=== PATIENT | male | born 1965 | race Caucasian/White ===

== ENCOUNTER 2016-12-01 11:43 | Inpatient (IN) | payer OTHER ==
[~2016-12-01] VITALS: Ht 180.3 cm; Wt 122.9 kg
[~2016-12-01 11:43] MED LIST changes: -ARIP1TAB14 PO; -BACTOIN EACH NARE; -HYDR-3366 PO
[2017-02-07] MEDS ORDERED: PYRI100T PO (13:01)
[2017-02-07] MEDS ORDERED: ARIP1TAB15 PO (13:01)
[2017-02-07] MEDS ORDERED: HYDR-3533 PO (14:13)
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
[2017-02-09] MEDS ORDERED: METOPROLOL TARTRATE 25 MG TAB PO PRN (06:15)
[2017-02-09] MEDS ORDERED: POVIDONE IODINE 5% (ANTISEPSIS KIT) 4 APPLICATIONS EACH NARE PRN (06:15)
[2017-02-09] MEDS ORDERED: SODIUM CHLORID 0.9% 500 ML IV PRN (06:15)
[2017-02-09] MEDS ORDERED: CHLORHEXIDINE GLUCONATE 2 % 1 PACK (2 CLOTHS) TOPICAL PRN (06:15)
[2017-02-09] MEDS ORDERED: INSULIN HUMAN REGULAR 1,000 UNITS/10 ML VIAL SQ PRN (06:15)
[2017-02-09] MEDS ORDERED: ceFAZolin 2 GM PREMIX 50 ML IV SCH (06:15)
[2017-02-09] MEDS ORDERED: SODIUM CHLOR 0.9% 1000 ML INJ 1,000 ML IV SCH (06:15)
[2017-02-09] MEDS ORDERED: LACTATED RINGER'S 1000 ML IV PRN (06:15)
[2017-02-09 06:28] VITALS: BP 119/72; PULSE 84; RESP 18; TEMP 98; O2SAT 96
[2017-02-09] MEDS ORDERED: THROMBIN (TOPICAL) 5,000 UNIT VIAL ONE (07:07)
[2017-02-09] MEDS ORDERED: GELFOAM SIZE 100 ONE (07:08)
[2017-02-09] MEDS ORDERED: BUPIVACAINE/EPINEPHRINE 0.5% PF 30 ML VIAL ONE (07:08)
[2017-02-09] MEDS ORDERED: DEXAMETHASONE SOD PHOS 4 MG/ML VIAL ONE (07:48)
[2017-02-09] MEDS ORDERED: ACETAMINOPHEN 1000 MG/100 ML VIAL IV ONE (07:48)
[2017-02-09] MEDS ORDERED: FAMOTIDINE 20 MG/2 ML VIAL ONE (07:48)
[2017-02-09] MEDS ORDERED: MIDAZOLAM HCL 2 MG/2 ML VIAL ONE (07:48)
[2017-02-09] MEDS: VANCOMYCIN HCL 1000 MG VIAL ONE ×2 (09:44→11:27)
[2017-02-09] MEDS ORDERED: DO NOT ADM ANY ANTICOAGULANT DRUGS PRN (12:00)
[2017-02-09] MEDS ORDERED: PROPOFOL 200 MG/20 ML AMP IV ONE (12:00)
[2017-02-09] MEDS ORDERED: NEOSTIGMINE 3 MG/3 ML SYR IV ONE (12:00)
[2017-02-09] MEDS ORDERED: PHENYLEPH/NS 1000 MCG/10 ML SYR IV ONE (12:00)
[2017-02-09] MEDS ORDERED: LACTATED RINGER'S 1000 ML INJ 2,000 ML IV ONE (12:00)
[2017-02-09] MEDS ORDERED: ePHEDrine/NS 25 MG/5 ML SYR IV ONE (12:00)
[2017-02-09] MEDS ORDERED: ONDANSETRON HCL 4 MG/2 ML VIAL IV PUSH ONE (12:00)
[2017-02-09] MEDS: NS + KCL 20 MEQ INJ 1,000 ML IV SCH ×2 (12:08→21:08)
[2017-02-09] MEDS ORDERED: ALUMINUM/MAGNESIUM/SIMETH 30 ML CUP PO PRN (12:15)
[2017-02-09] MEDS ORDERED: POTASSIUM CHLOR 20 MEQ PREMIX 100 ML IV PRN (12:15)
[2017-02-09] MEDS ORDERED: ZOLPIDEM TARTRATE 5 MG TAB PO PRN (12:15)
[2017-02-09] MEDS ORDERED: RESP: ALBUTEROL 2.5 MG/3 ML NEB (PRN) NEB (12:15)
[2017-02-09] MEDS ORDERED: CALCIUM GLUCONATE INJ 1 GM in SODIUM CHLORIDE 0.9% INJ 100 ML IV PRN (12:15)
[2017-02-09] MEDS ORDERED: METOCLOPRAMIDE HCL 10 MG/2 ML VIAL IVS PRN (12:15)
[2017-02-09] MEDS ORDERED: SODIUM CHLORIDE 0.9% FLUSH 10 ML FLUSH IV FLUSH PRN (12:15)
[2017-02-09] MEDS ORDERED: MENTHOL LOZENGE BUCCAL PRN (12:15)
[2017-02-09] MEDS ORDERED: diphenhydrAMINE HCL 50 MG/ML VIAL IV PRN (12:15)
[2017-02-09] MEDS ORDERED: MAGNESIUM SULFATE INJ 2 GM in SODIUM CHLORIDE 0.9% INJ 100 ML IV PRN (12:15)
[2017-02-09] MEDS ORDERED: ACETAMINOPHEN/HYDROcodone 325 MG/10 MG TAB PO PRN ×2 (12:15)
[2017-02-09] MEDS ORDERED: ONDANSETRON HCL 4 MG/2 ML VIAL IV PRN (12:15)
[2017-02-09] MEDS ORDERED: cloNIDine HCL 0.1 MG TAB PO PRN (12:15)
[2017-02-09] MEDS ORDERED: NALOXONE HCL 0.4 MG/ML AMP IV PRN (12:15)
[2017-02-09] MEDS ORDERED: MORPHINE SULFATE 30 MG/30 ML PCA IV SCH (12:15)
[2017-02-09] MEDS ORDERED: ACETAMINOPHEN 325 MG TAB PO PRN (12:15)
--- NOTE | 2017-02-09 12:15 | PD.OP ---
Operative Report Date of Surgery: Feb 09, 2017 Preoperative Diagnosis: Intractable low back pain with right radiculopathy; L4-5 degenerative disc disease with facet arthropathy and associated foraminal stenosis; postlaminectomy syndrome Postoperative Diagnosis: Same Procedure: Right lumbar L4-5 transforaminal decompression with interbody fusion; L4-5 pedicle screw fixation; L4-5 interbody cage placement; microsurgical technique Anesthesia: Gen. endotracheal by Fahad Galloway Surgeon: Osmani Hancock M.D. Law Firm Partner(s): Lindsay Fernández Operation and Findings: Following initiation of general endotracheal anesthesia, the patient had a De Jesus catheter placed along with sequential compression devices. A gram of vancomycin was administered intravenously and he was turned in a prone position on a Lane frame, on a Allen table, and all pressure points adequately padded. The lumbosacral region was then prepped with Chloraprep and sterilely draped with Ioban along the usual sterile draping. A right paraspinal skin incision was then made extending from the L4-L5 level after infiltrating the skin with 0.5% Marcaine with epinephrine solution extending down through the fascia. He had a previous large midline incision site and the right paraspinal incision approach was undertaken to avoid scar tissue from the previous surgery. The muscle fibers were split using avascular fatty plane and detached from the underlying facets, transverse process and lateral portion of lamina on the right side and a self-retaining retractor used for exposure. Intraoperative fluoroscopy was also used for level of confirmation along with microscope magnification for further dissection. There was significant facet and ligamentum flavum hypertrophy noted at the L4-5 levels along with a disc protrusion. Right L4-5 facet was resected with a drill bit along with the lamina and there was severe foraminal and lateral recess stenosis from hypertrophied ligamentum flavum and facet which was decompressed. There was significant disc height collapse along with disc protrusion also leading to the foraminal stenosis. Epidural hemostasis was achieved with bipolar cautery and Gelfoam with thrombin. Subsequently entered into the disc space at the L4-5 level with a #15 blade and gino were used for discectomy. I then placed PEEK cage packed with local autograft bone along with the demineralized bone matrix and more local autograft bone was packed adjacent to the cage in interspace for added interbody fusion. With placement of the cage, I was able to distract the interspace and opened up the foramen further bilaterally. Subsequently in order to facilitate the fusion and provide stabilization, pedicle screw fixation was undertaken using [place] spine screws on entry point at the right L4-5 levels at the junction of the transverse process and facet. Subsequently using AP and lateral fluoroscopy tap and screw placement. The screws were then connected with a ame and locked in place with caps. The construct appeared very secure at this point. The area was then copiously irrigated with Vancomycin solution and powder. The retractors were removed and the bipolar cautery used for hemostasis. The muscle fascia was then approximated using 2-0 Vicryl interrupted stitches and then 3-0 Vicryl subcuticular stitches also placed in interrupted fashion. The final skin closure was completed with aldo. A sterile dressing was then applied. The patient then turned in supine position, extubated and taken to recovery room. There were no intraoperative complications. All sponge and needle counts were correct at the end of procedure. Estimated blood loss about 100 ml. Osmani Hancock MD Feb 09, 2017 12:15
[2017-02-09] MEDS: CYCLOBENZAPRINE HCL 10 MG TAB PO SCH ×2 (13:00→17:43)
[2017-02-09] MEDS: GABAPENTIN 300 MG CAP PO SCH ×2 (13:00→17:43)
[2017-02-09] MEDS: hydrOXYzine HCL 25 MG TAB PO SCH ×2 (13:00→17:43)
[2017-02-09 13:16] LABS: HEMATOCRIT 35.8 % (39.0-51.0); MEAN CELL VOLUME 87.2 FL (80.0-100.0); MEAN CORPUSCULAR HGB CONC 33.3 % (32.0-36.0); PLATELET COUNT 251 TH/MM3 (150-450); RED BLOOD COUNT 4.11 MIL/MM3 (4.50-5.90); RED CELL DISTRIBUTION WIDTH 13.5 % (11.6-17.2); REVIEW FLAG FINAL; WHITE BLOOD COUNT 9.1 TH/MM3 (4.0-11.0)
[2017-02-09 13:29] LABS: BICARBONATE 29.5 MEQ/L (21.0-32.0); POTASSIUM 4.4 MEQ/L (3.5-5.1)
[2017-02-09] MEDS: PCA - TOTAL MG MORPHINE DELIVERED PER SHIFT SCH ×2 (14:00→21:58)
[2017-02-09 15:41] VITALS: BP 140/87; PULSE 93; RESP 18; TEMP 97.4; O2SAT 94
--- NOTE | 2017-02-09 15:51 | RADRPT ---
EXAM DATE/TIME: 02/09/2017 08:50 [facility] COMPARISON: No previous studies available for comparison. INDICATIONS : Fusion L4,L5 with screw and ame placement. MEDICAL HISTORY : None. SURGICAL HISTORY : None. ENCOUNTER: Initial ACUITY: 1 day PAIN SCORE: Non-responsive. LOCATION: lumbar spine. FINDINGS: AP and lateral cone-down views of the lower lumbar spine were obtained using a matrix camera. This de monstrates that the patient is status post fusion at the L4-5 level with right-sided pedicle screws a nd posterior fixation ame. There 2 small metallic markers in the interspace. Alignment is anatomic. T he study is labeled assuming 5 nonrib-bearing lumbar type vertebra. CONCLUSION: Status post fusion at the L4-5 level. Zev Mccloud MD on February 09, 2017 at 15:48 Board Certified Radiologist. This report was verified electronically.
--- NOTE | 2017-02-09 17:33 | PD.CONS ---
HPI Service [facility] Consult Requested By Primary Care Physician Non-Staff Diagnoses: History of Present Illness Mr. Oconnell is a 51-year-old male. He was admitted secondary to chronic lower back pain and in need of lumbar fusion at L4-L5 due to lumbar degenerative disc disease. At baseline he has asthma, sleep apnea, hypertension, rheumatoid arthritis, depression, anxiety and tuberculosis and as a child. He's had a prior lumbar back surgery in year 1999 and his only other surgery reported as a cholecystectomy. When seen he is in pain and reports that narcotics to work well for him. He finds more relief from Naprosyn and gabapentin than he does from certain narcotics. He's never tried oxycodone to his knowledge. He has tried morphine and hydrocodone in the past without much benefit. He may have some genetic opioid resistance. No other complaints. No nausea or vomiting. No altered mental status post op. Review of Systems Constitutional: DENIES: Fever, Chills, Change in appetite Endocrine: DENIES: Heat/cold intolerance Eyes: DENIES: Blurred vision, Eye pain Ears, nose, mouth, throat: DENIES: Hearing loss, Vertigo Respiratory: DENIES: Cough, Wheezing, Shortness of breath Cardiovascular: DENIES: Chest pain, Palpitations, Syncope Gastrointestinal: DENIES: Abdominal pain, Black stools, Bloody stools Musculoskeletal: COMPLAINS OF: Joint pain, Back pain Integumentary: DENIES: Abnormal pigmentation, Nail changes Hematologic/lymphatic: DENIES: Bruising Immunologic/allergic: DENIES: Eczema Neurologic: DENIES: Abnormal gait Psychiatric: DENIES: Anxiety, Confusion, Mood changes Past Family Social History Allergies: Coded Allergies: aspirin (Unverified Allergy, Severe, Irritability/Anxiety, 02/09/17) Pt states it closes up his throat Past Medical History Asthma Sleep apnea Hypertension Rheumatoid arthritis Depression Anxiety Tuberculosis as a child Past Surgical History Cholecystectomy Lumbar back surgery in 1999 Reported Medications Reported Meds & Active Scripts Active Lortab (Hydrocodone-Acetaminophen) 5-325 Mg Tab 1 Tab PO Q8HR PRN Reported Aripiprazole 30 Mg Tab 30 Mg PO DAILY Vitamin B-6 (Pyridoxine HCl) 100 Mg Tab 100 Mg PO DAILY Furosemide 20 Mg Tab 20 Mg PO DAILY Flexeril (Cyclobenzaprine HCl) 10 Mg Tab 10 Mg PO TID Proscar (Finasteride) 5 Mg Tab 5 Mg PO DAILY Do not crush. Nifedipine ER 24 HR (Nifedipine) 30 Mg Tab 30 Mg PO DAILY Duloxetine DR (Duloxetine HCl) 60 Mg Capdr 60 Mg PO DAILY Hydroxyzine HCl 25 Mg Tab 50 Mg PO TID Ala-Cornelius Topical (Hydrocortisone (Topical)) 2.5% Cream 1 Applic TOPICAL DIRECTED Doxazosin (Doxazosin Mesylate) 8 Mg Tab 8 Mg PO DAILY Isoniazid 300 Mg Tab 300 Mg PO DAILY Potassium Chloride ER (Potassium Chloride) 10 Meq Tab 10 Meq PO BID Gabapentin 600 Mg Tab 600 Mg PO TID Active Ordered Medications Administered Medications Medications (Trade) Dose Ordered Sig/Cathy Route PRN Reason Start Time Stop Time Status Last Admin Dose Admin Potassium Chloride/Sodium Chloride 1,000 ml @ 100 mls/hr Q10H IV 02/09/17 12:08 02/09/17 12:08 Cefazolin Sodium/ Sodium Chloride (Ancef Inj/NS Inj) 100 ml @ 200 mls/hr Q8H IV 02/09/17 15:00 02/10/17 07:29 02/09/17 14:22 Morphine Sulfate (Morphine 1 Mg/ ml IT SERVICE CONTINUITY 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 No alcohol abuse No drug abuse Physical Exam Vital Signs Vital Signs Date Time Temp Pulse Resp B/P Pulse Ox O2 Delivery O2 Flow Rate FiO2 02/09/17 17:03 3 02/09/17 15:41 97.4 93 18 140/87 94 02/09/17 14:05 Nasal Cannula 2.00 02/09/17 13:30 94 16 149/86 96 Nasal Cannula 2 02/09/17 13:00 98 16 136/68 96 Nasal Cannula 2 02/09/17 12:45 98 16 147/86 95 Nasal Cannula 2 02/09/17 12:30 96 16 149/87 96 Nasal Cannula 2 02/09/17 12:15 96 16 139/84 95 Nasal Cannula 2 02/09/17 12:00 98.6 94 16 135/83 93 Nasal Cannula 2 02/09/17 06:28 98.0 84 18 119/72 96 Physical Exam GENERAL: NAD, A&Ox3 HEAD: Normocephalic. NECK: Supple, trachea midline. No lymphadenopathy. EYES: No scleral icterus. No injection or drainage. CARDIOVASCULAR: Regular rate and rhythm without murmurs, gallops, or rubs. RESPIRATORY: Breath sounds equal bilaterally. No accessory muscle use. GASTROINTESTINAL: Abdomen soft, non-tender, nondistended. MUSCULOSKELETAL: No cyanosis, or edema. SKIN: Warm and dry. NEURO: No focal neurological deficitis. Laboratory Laboratory Tests Test 02/09/17 02/09/17 06:25 12:40 Blood Type AB POSITIVE Antibody Screen NEGATIVE Blood Bank Comment White Blood Count 9.1 Red Blood Count 4.11 Hemoglobin 11.9 Hematocrit 35.8 Mean Corpuscular Volume 87.2 Mean Corpuscular Hemoglobin 29.0 Mean Corpuscular Hemoglobin 33.3 Concent Red Cell Distribution Width 13.5 Platelet Count 251 Mean Platelet Volume 8.6 Sodium Level 139 Potassium Level 4.4 Chloride Level 103 Carbon Dioxide Level 29.5 Anion Gap 7 Blood Urea Nitrogen 35 Creatinine 2.33 Estimat Glomerular Filtration 29 Rate Random Glucose 156 Calcium Level 11.0 Result Diagram: 02/09/17 1240 02/09/17 1240 Imaging Last Impressions Lumbar Spine X-Ray 02/09/17 0000 Signed Impressions: Service Date/Time: January 08:50 - CONCLUSION: Status post fusion at the L4-5 level. Zev Mccloud MD Assessment and Plan Problem List: (1) Spondylolisthesis of lumbar region ICD Code: M43.16 Status: Acute (2) Lumbar foraminal stenosis ICD Code: M99.83 Status: Acute (3) Lumbar degenerative disc disease ICD Code: M51.36 Status: Acute (4) Facet arthropathy, lumbar ICD Code: M12.88 Status: Acute (5) Postlaminectomy syndrome, lumbar ICD Code: M96.1 Status: Acute (6) Low back pain ICD Code: M54.5 Status: Acute Assessment and Plan Assessment and plan 51-year-old male status post lumbar spine fusion surgery Postop lumbar spine fusion surgery Neurosurgery following Continue pain treatments Pain not yet controlled Hydrocodone change to oxycodone IT SERVICE 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
[2017-02-09 20:45] VITALS: BP 149/87; PULSE 92; RESP 17; TEMP 98.2; O2SAT 97
[2017-02-09] MEDS: SODIUM CHLORIDE 0.9% FLUSH 10 ML FLUSH IV FLUSH SCH (21:00)
[2017-02-09] MEDS: POTASSIUM CHLORIDE 10 MEQ CONTROLLED RELEASE TAB PO SCH (21:08)
[2017-02-09] MEDS: DOCUSATE SODIUM 100 MG CAP PO SCH (21:08)
[2017-02-10] VITALS (9 sets, daily range): BP systolic 120–147; BP diastolic 68–91; PULSE 78–112; RESP 17–19; TEMP 96.4–98.5; O2SAT 95–98
[2017-02-10] MEDS: PCA - TOTAL MG MORPHINE DELIVERED PER SHIFT SCH ×3 (06:00→22:00)
[2017-02-10 08:04] LABS: AUTOMATED NEUTROPHIL # 10.8 TH/MM3 (1.8-7.7); BASOPHIL # 0.1 TH/MM3 (0-0.2); BASOPHIL % 0.4 % (0.0-2.0); EOSINOPHIL # 0.1 TH/MM3 (0-0.4); EOSINOPHIL % 0.4 % (0.0-4.0); HEMATOCRIT 31.9 % (39.0-51.0); HEMO FLAGS DIFF FINAL; LYMPH % 14.2 % (9.0-44.0); LYMPHOCYTE # 1.9 TH/MM3 (1.0-4.8); MEAN CORPUSCULAR HEMOGLOBIN 28.6 PG (27.0-34.0); MEAN CORPUSCULAR HGB CONC 33.2 % (32.0-36.0); MONO % 6.1 % (0.0-8.0); NEUT % 78.9 % (16.0-70.0); PLATELET COUNT 249 TH/MM3 (150-450); RED BLOOD COUNT 3.71 MIL/MM3 (4.50-5.90); RED CELL DISTRIBUTION WIDTH 13.3 % (11.6-17.2); WHITE BLOOD COUNT 13.7 TH/MM3 (4.0-11.0)
[2017-02-10 08:56] LABS: BICARBONATE 29.8 MEQ/L (21.0-32.0); MAGNESIUM 1.2 MG/DL (1.5-2.5); POTASSIUM 4.1 MEQ/L (3.5-5.1)
[2017-02-10] MEDS: HYDROCORTISONE 2.5% CREAM 30 GM TOPICAL SCH (09:00)
[2017-02-10] MEDS: LACTULOSE SYRUP 20 GM/30 ML CUP PO SCH (09:06)
[2017-02-10] MEDS: GABAPENTIN 300 MG CAP PO SCH ×3 (09:06→17:43)
[2017-02-10] MEDS: PANTOPRAZOLE SOD 40 MG DELAYED RELEASE TAB PO SCH (09:07)
[2017-02-10] MEDS: ARIPiprazole 30 MG TAB PO SCH (09:07)
[2017-02-10] MEDS: hydrOXYzine HCL 25 MG TAB PO SCH ×3 (09:07→17:43)
[2017-02-10] MEDS: CYCLOBENZAPRINE HCL 10 MG TAB PO SCH ×3 (09:07→17:43)
[2017-02-10] MEDS: DULoxetine HCl DR 60 MG CAP PO SCH (09:07)
[2017-02-10] MEDS: PYRIDOXINE HCL 50 MG TAB PO SCH (09:07)
[2017-02-10] MEDS: ISONIAZID 300 MG TAB PO SCH (09:08)
[2017-02-10] MEDS: FINASTERIDE 5 MG TAB PO SCH (09:08)
[2017-02-10] MEDS: SODIUM CHLORIDE 0.9% FLUSH 10 ML FLUSH IV FLUSH SCH ×2 (09:08→22:04)
[2017-02-10] MEDS: DOXAZOSIN MESYLATE 4 MG TAB PO SCH (09:08)
[2017-02-10] MEDS: NIFEdipine 30 MG SUSTAINED RELEASE TAB PO SCH (09:08)
[2017-02-10] MEDS: POTASSIUM CHLORIDE 10 MEQ CONTROLLED RELEASE TAB PO SCH ×2 (09:08→22:04)
[2017-02-10] MEDS: FUROSEMIDE 20 MG TAB PO SCH (09:08)
[2017-02-10] MEDS: DOCUSATE SODIUM 100 MG CAP PO SCH ×2 (09:08→22:04)
[2017-02-10] MEDS: NS + KCL 20 MEQ INJ 1,000 ML IV SCH ×2 (09:12→22:07)
--- NOTE | 2017-02-10 11:16 | HHI.NSPN ---
(Amarjit Pabon) History Chief Complaint: Incisional pain. (Amarjit Pabon) Interval History 02/10: Pt awake and alert. Complains of incisional back pain. No radiculopathy or paresthesias in LEs. He was up with PT today. Voiding well. ( Amarjit Pabon) Review of Systems General: Negative for: fever, chills, insomnia Respiratory: Negative for: shortness of breath, cough, sputum Cardiovascular: Negative for: chest pain Gastrointestinal: Negative for: nausea, vomitting, diarrhea, constipation ( Amarjit Pabon) Exam Results Vital Signs Date Time Temp Pulse Resp B/P Pulse Ox O2 Delivery O2 Flow Rate FiO2 02/10/17 07:53 96.4 89 17 121/68 96 02/10/17 06:04 Nasal Cannula 2.50 Intake and Output 02/09/17 02/09/17 02/09/17 07:59 15:59 23:59 Intake Total 50 ml 1478 ml Output Total 300 ml 1000 ml Balance -250 ml 478 ml (Amarjit Pabon) Physical Examination Resp: CTA bilaterally Heart: NSR no murmurs Abd: Soft positive bs Skin: No cyanosis or erythema. RN changed bandage this morning. Muscle: Moves LEs with good strength Neuro: Pt awake and alert. Follows commands well. Speech clear and appropriate. (Amarjit Pabon) Lab, Micro, Other Results Laboratory Tests Test 02/09/17 02/10/17 12:40 06:38 White Blood Count 9.1 TH/MM3 13.7 TH/MM3 Red Blood Count 4.11 MIL/MM3 3.71 MIL/MM3 Hemoglobin 11.9 GM/DL 10.6 GM/DL Hematocrit 35.8 % 31.9 % Mean Corpuscular Volume 87.2 FL 86.0 FL Mean Corpuscular Hemoglobin 29.0 PG 28.6 PG Mean Corpuscular Hemoglobin 33.3 % 33.2 % Concent Red Cell Distribution Width 13.5 % 13.3 % Platelet Count 251 TH/MM3 249 TH/MM3 Mean Platelet Volume 8.6 FL 9.5 FL Sodium Level 139 MEQ/L 139 MEQ/L Potassium Level 4.4 MEQ/L 4.1 MEQ/L Chloride Level 103 MEQ/L 105 MEQ/L Carbon Dioxide Level 29.5 MEQ/L 29.8 MEQ/L Anion Gap 7 MEQ/L 4 MEQ/L Blood Urea Nitrogen 35 MG/DL 31 MG/DL Creatinine 2.33 MG/DL 2.11 MG/DL Estimat Glomerular Filtration 29 ML/MIN 33 ML/MIN Rate Random Glucose 156 MG/DL 140 MG/DL Calcium Level 11.0 MG/DL 9.5 MG/DL Neutrophils (%) (Auto) 78.9 % Lymphocytes (%) (Auto) 14.2 % Monocytes (%) (Auto) 6.1 % Eosinophils (%) (Auto) 0.4 % Basophils (%) (Auto) 0.4 % Neutrophils # (Auto) 10.8 TH/MM3 Lymphocytes # (Auto) 1.9 TH/MM3 Monocytes # (Auto) 0.8 TH/MM3 Eosinophils # (Auto) 0.1 TH/MM3 Basophils # (Auto) 0.1 TH/MM3 CBC Comment DIFF FINAL Differential Comment Magnesium Level 1.2 MG/DL 02/09/17 02/09/17 02/10/17 14:59 22:59 06:59 Intake Total 50 ml 1478 ml 1022 ml Output Total 300 ml 1000 ml 550 ml Balance -250 ml 478 ml 472 ml Intake Oral 480 ml 240 ml IV Total 50 ml 998 ml 782 ml Output Urine Total 300 ml 1000 ml 550 ml # Bowel Movements 0 0 (Amarjit Pabon) Medical Decision Making Impression and Plan A: 51 y/o M s/p L4/L5 decompression and interbody fusion with cage and pedicle screw fixation. P: Continue to monitor Continue with pain control with PEDIATRIC DERMATOLOGIST, anticipate d/c slot router tomorrow. Continue with PT. (Amarjit Pabon) Attending Statement The exam, history, and the medical decision-making described in the above note were completed with the assistance of the mid-level provider. I reviewed and agree with the findings presented. I attest that I had a [id number] encounter with the patient on the same day, and personally performed and documented my assessment and findings in the medical record. (Osmani Hancock MD) Amarjit Pabon Feb 10, 2017 11:16 Osmani Hancock MD Feb 10, 2017 13:50
[2017-02-10] MEDS ORDERED: WALKER WHEELS/F1 MIS (11:19)
--- NOTE | 2017-02-10 13:06 | HHI.PR ---
Subjective Remarks No complaints today. Pain is under control as far. Renal function is improved compared to previous day. Objective Vital Signs Date Time Temp Pulse Resp B/P Pulse Ox O2 Delivery O2 Flow Rate FiO2 02/10/17 12:18 98 21 02/10/17 11:38 97.6 78 17 120/78 95 02/10/17 07:53 96.4 89 17 121/68 96 02/10/17 06:04 96 Nasal Cannula 2.50 02/10/17 06:00 16 02/10/17 04:35 97.7 82 18 147/91 98 02/10/17 01:39 Nasal Cannula 2.00 02/10/17 00:45 98.5 80 17 143/82 97 02/09/17 22:22 18 02/09/17 21:58 18 02/09/17 20:45 98.2 92 17 149/87 97 02/09/17 17:03 3 02/09/17 15:41 97.4 93 18 140/87 94 02/09/17 14:05 Nasal Cannula 2.00 02/09/17 13:30 94 16 149/86 96 Nasal Cannula 2 I/O 02/09/17 02/09/17 02/09/17 02/10/17 02/10/17 02/10/17 06:59 14:59 22:59 06:59 14:59 22:59 Intake Total 50 ml 1478 ml 1022 ml Output Total 300 ml 1000 ml 550 ml Balance -250 ml 478 ml 472 ml Intake Oral 480 ml 240 ml IV Total 50 ml 998 ml 782 ml Output Urine Total 300 ml 1000 ml 550 ml # Bowel Movements 0 0 Result Diagram: 02/10/1738 02/10/17 0638 Objective Remarks GENERAL: NAD, A&Ox3 HEAD: Normocephalic. NECK: Supple, trachea midline. No lymphadenopathy. EYES: No scleral icterus. No injection or drainage. CARDIOVASCULAR: Regular rate and rhythm without murmurs, gallops, or rubs. RESPIRATORY: Breath sounds equal bilaterally. No accessory muscle use. GASTROINTESTINAL: Abdomen soft, non-tender, nondistended. MUSCULOSKELETAL: No cyanosis, or edema. SKIN: Warm and dry. NEURO: No focal neurological deficitis. A/P Problem List: (1) Spondylolisthesis of lumbar region ICD Code: M43.16 (2) Lumbar foraminal stenosis ICD Code: M99.83 (3) Lumbar degenerative disc disease ICD Code: M51.36 (4) Facet arthropathy, lumbar ICD Code: M12.88 (5) Postlaminectomy syndrome, lumbar ICD Code: M96.1 (6) Low back pain ICD Code: M54.5 Assessment and Plan Assessment and plan 51-year-old male status post lumbar spine fusion surgery. Improving well thus far. Continue PT. Follow renal function. 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
[2017-02-10] MEDS: MAGNESIUM HYDROXIDE SUSP 30 ML CUP PO PRN (22:04)
[2017-02-11] VITALS (7 sets, daily range): BP systolic 109–159; BP diastolic 68–99; PULSE 86–113; RESP 18–21; TEMP 97–99.3; O2SAT 92–98
[2017-02-11] MEDS: PCA - TOTAL MG MORPHINE DELIVERED PER SHIFT SCH ×3 (06:00→21:06)
[2017-02-11 08:15] LABS: HEMATOCRIT 31.6 % (39.0-51.0); MEAN CORPUSCULAR HEMOGLOBIN 28.7 PG (27.0-34.0); MEAN CORPUSCULAR HGB CONC 33.3 % (32.0-36.0); PLATELET COUNT 237 TH/MM3 (150-450); RED BLOOD COUNT 3.67 MIL/MM3 (4.50-5.90); RED CELL DISTRIBUTION WIDTH 13.7 % (11.6-17.2); REVIEW FLAG FINAL; WHITE BLOOD COUNT 12.4 TH/MM3 (4.0-11.0)
[2017-02-11 08:41] LABS: BICARBONATE 31.3 MEQ/L (21.0-32.0); POTASSIUM 3.9 MEQ/L (3.5-5.1)
[2017-02-11] MEDS: LACTULOSE SYRUP 20 GM/30 ML CUP PO SCH (09:32)
[2017-02-11] MEDS: SODIUM CHLORIDE 0.9% FLUSH 10 ML FLUSH IV FLUSH SCH ×2 (09:32→21:06)
[2017-02-11] MEDS: DOCUSATE SODIUM 100 MG CAP PO SCH ×2 (09:32→21:06)
[2017-02-11] MEDS: DULoxetine HCl DR 60 MG CAP PO SCH (09:33)
[2017-02-11] MEDS: ISONIAZID 300 MG TAB PO SCH (09:33)
[2017-02-11] MEDS: PYRIDOXINE HCL 50 MG TAB PO SCH (09:33)
[2017-02-11] MEDS: GABAPENTIN 300 MG CAP PO SCH ×3 (09:33→17:38)
[2017-02-11] MEDS: POTASSIUM CHLORIDE 10 MEQ CONTROLLED RELEASE TAB PO SCH ×2 (09:33→21:06)
[2017-02-11] MEDS: ARIPiprazole 30 MG TAB PO SCH (09:33)
[2017-02-11] MEDS: PANTOPRAZOLE SOD 40 MG DELAYED RELEASE TAB PO SCH (09:33)
[2017-02-11] MEDS: hydrOXYzine HCL 25 MG TAB PO SCH ×3 (09:34→17:38)
[2017-02-11] MEDS: DOXAZOSIN MESYLATE 4 MG TAB PO SCH (09:34)
[2017-02-11] MEDS: FINASTERIDE 5 MG TAB PO SCH (09:35)
[2017-02-11] MEDS: FUROSEMIDE 20 MG TAB PO SCH (09:35)
[2017-02-11] MEDS: CYCLOBENZAPRINE HCL 10 MG TAB PO SCH ×3 (09:35→17:38)
[2017-02-11] MEDS: HYDROCORTISONE 2.5% CREAM 30 GM TOPICAL SCH (09:35)
[2017-02-11] MEDS: NIFEdipine 30 MG SUSTAINED RELEASE TAB PO SCH (09:35)
--- NOTE | 2017-02-11 11:04 | HHI.NSPN ---
(Amarjit Pabon) History Chief Complaint: Incisional pain. (Amarjit Pabon) Interval History 02/10: Pt awake and alert. Complains of incisional back pain. No radiculopathy or paresthesias in LEs. He was up with PT today. Voiding well. 02/11: Pt awake and alert. Complains of pain radiating down the lateral aspect of the right leg. States he wants to continue with JOB PRESS FEEDER today. Voiding well. No paresthesias in LEs. (Amarjit Pabon) Review of Systems General: Negative for: fever, chills, insomnia Respiratory: Negative for: shortness of breath, cough, sputum Cardiovascular: Negative for: chest pain Gastrointestinal: Negative for: nausea, vomitting, diarrhea, constipation ( Amarjit Pabon) Exam Results Vital Signs Date Time Temp Pulse Resp B/P Pulse Ox O2 Delivery O2 Flow Rate FiO2 02/11/17 08:00 97.9 86 18 130/81 94 02/11/17 01:30 Room Air 02/10/17 18:05 2.50 02/10/17 12:18 21 Intake and Output 02/10/17 02/10/17 02/11/17 08:00 16:00 00:00 Intake Total 1022 ml 750 ml 1220 ml Output Total 550 ml 150 ml 250 ml Balance 472 ml 600 ml 970 ml (Amarjit Pabon) Physical Examination Resp: CTA bilaterally Heart: NSR no murmurs Abd: Soft positive bs Skin: No cyanosis or erythema. RN changed bandage this morning. States clean and dry. Muscle: Moves LEs with good strength Neuro: Pt awake and alert. Follows commands well. Speech clear and appropriate. RLE pain exacerbates with right knee extension. (Amarjit Pabon ) Lab, Micro, Other Results Last Impressions Lumbar Spine X-Ray 02/09/17 0000 Signed Impressions: Service Date/Time: January 08:50 - CONCLUSION: Status post fusion at the L4-5 level. Zev Mccloud MD Laboratory Tests Test 02/11/17 07:51 White Blood Count 12.4 TH/MM3 Red Blood Count 3.67 MIL/MM3 Hemoglobin 10.5 GM/DL Hematocrit 31.6 % Mean Corpuscular Volume 86.0 FL Mean Corpuscular Hemoglobin 28.7 PG Mean Corpuscular Hemoglobin 33.3 % Concent Red Cell Distribution Width 13.7 % Platelet Count 237 TH/MM3 Mean Platelet Volume 8.1 FL Sodium Level 138 MEQ/L Potassium Level 3.9 MEQ/L Chloride Level 103 MEQ/L Carbon Dioxide Level 31.3 MEQ/L Anion Gap 4 MEQ/L Blood Urea Nitrogen 31 MG/DL Creatinine 1.75 MG/DL Estimat Glomerular Filtration 41 ML/MIN Rate Random Glucose 127 MG/DL Calcium Level 8.9 MG/DL 02/10/17 02/10/17 02/11/17 15:00 23:00 07:00 Intake Total 750 ml 1220 ml 1739 ml Output Total 150 ml 250 ml Balance 600 ml 970 ml 1739 ml Intake Oral 750 ml 480 ml 480 ml IV Total 740 ml 1259 ml Output Urine Total 150 ml 250 ml # Voids 1 3 # Bowel Movements 0 0 (Amarjit Pabon) Medical Decision Making Impression and Plan A: 51 y/o M s/p L4/L5 decompression and interbody fusion with cage and pedicle screw fixation. P: Continue to monitor Continue with pain control with JOB PRESS FEEDER, anticipate d/c eyeglass cutter tomorrow. Continue with PT. Anticipate discharge home Monday with home PT and HHC (Amarjit Pabon) Attending Statement The exam, history, and the medical decision-making described in the above note were completed with the assistance of the mid-level provider. I reviewed and agree with the findings presented. I attest that I had a [id number] encounter with the patient on the same day, and personally performed and documented my assessment and findings in the medical record. (Osmani Hancock MD) Amarjit Pabon Feb 11, 2017 11:04 Osmani Hancock MD Feb 11, 2017 14:00
--- NOTE | 2017-02-11 15:37 | HHI.PR ---
Subjective Remarks Improved functionality today. Patient is out of bed in chair when seen. Renal function is improving through time. Objective Vital Signs Date Time Temp Pulse Resp B/P Pulse Ox O2 Delivery O2 Flow Rate FiO2 02/11/17 14:21 92 21 02/11/17 13:24 20 02/11/17 12:00 97.8 100 19 159/87 98 02/11/17 09:34 Room Air 02/11/17 08:00 97.9 86 18 130/81 94 02/11/17 06:00 17 02/11/17 04:40 99.3 99 20 119/77 92 02/11/17 01:30 Room Air 02/11/17 00:50 97.2 113 21 149/99 98 02/10/17 22:00 17 02/10/17 20:40 97.6 112 19 145/86 97 02/10/17 18:05 95 Nasal Cannula 2.50 02/10/17 15:52 97.5 90 17 141/84 95 I/O 02/10/17 02/10/17 02/10/17 02/11/17 02/11/17 02/11/17 07:00 15:00 23:00 07:00 15:00 23:00 Intake Total 1022 ml 750 ml 1220 ml 1739 ml 650 ml Output Total 550 ml 150 ml 250 ml Balance 472 ml 600 ml 970 ml 1739 ml 650 ml Intake Oral 240 ml 750 ml 480 ml 480 ml IV Total 782 ml 740 ml 1259 ml 650 ml Output Urine Total 550 ml 150 ml 250 ml # Voids 1 3 # Bowel Movements 0 0 0 Result Diagram: 02/11/17 0751 02/11/17 0751 Objective Remarks GENERAL: NAD, A&Ox3 HEAD: Normocephalic. NECK: Supple, trachea midline. No lymphadenopathy. EYES: No scleral icterus. No injection or drainage. CARDIOVASCULAR: Regular rate and rhythm without murmurs, gallops, or rubs. RESPIRATORY: Breath sounds equal bilaterally. No accessory muscle use. GASTROINTESTINAL: Abdomen soft, non-tender, nondistended. MUSCULOSKELETAL: No cyanosis, or edema. SKIN: Warm and dry. NEURO: No focal neurological deficitis. A/P Problem List: (1) Spondylolisthesis of lumbar region ICD Code: M43.16 (2) Lumbar foraminal stenosis ICD Code: M99.83 (3) Lumbar degenerative disc disease ICD Code: M51.36 (4) Facet arthropathy, lumbar ICD Code: M12.88 (5) Postlaminectomy syndrome, lumbar ICD Code: M96.1 (6) Low back pain ICD Code: M54.5 Assessment and Plan Assessment and plan 51-year-old male status post lumbar spine fusion surgery. Improving well thus far. Continue PT. renal function continues to improve. Follow kidney function. Postop lumbar spine fusion surgery Neurosurgery following Continue pain treatments Pain not yet controlled Hydrocodone change to oxycodone LEGAL COLLECTOR morphine pump continue Acute kidney injury Improving through time Patient denies any chronic kidney disease Follow renal function Asthma Sleep apnea No exacerbation Patient reports he cannot use a BiPAP or CPAP Hypertension Continue baseline treatments Follow blood pressure Rheumatoid arthritis As needed pain treatments NSAIDs may be considered to augment pain, but not immediately postop Depression Anxiety No change to baseline treatments Tuberculosis as a child Follow clinically Joey Tello MD Feb 11, 2017 15:37
[2017-02-12 00:13] VITALS: BP 120/66; PULSE 88; RESP 19; TEMP 98.1; O2SAT 95
[2017-02-12 04:13] VITALS: BP 130/71; PULSE 96; RESP 19; TEMP 97.5; O2SAT 95
[2017-02-12] MEDS: NS + KCL 20 MEQ INJ 1,000 ML IV SCH (05:17)
[2017-02-12] MEDS: PCA - TOTAL MG MORPHINE DELIVERED PER SHIFT SCH ×3 (06:00→20:18)
[2017-02-12 07:45] VITALS: BP 131/75; PULSE 79; RESP 18; TEMP 99; O2SAT 93
[2017-02-12] MEDS: LACTULOSE SYRUP 20 GM/30 ML CUP PO SCH (07:55)
[2017-02-12] MEDS: ARIPiprazole 30 MG TAB PO SCH (07:55)
[2017-02-12] MEDS: hydrOXYzine HCL 25 MG TAB PO SCH ×3 (07:55→17:37)
[2017-02-12] MEDS: MAGNESIUM HYDROXIDE SUSP 30 ML CUP PO PRN (07:55)
[2017-02-12] MEDS: PYRIDOXINE HCL 50 MG TAB PO SCH (07:55)
[2017-02-12] MEDS: CYCLOBENZAPRINE HCL 10 MG TAB PO SCH ×3 (07:55→17:37)
[2017-02-12] MEDS: GABAPENTIN 300 MG CAP PO SCH ×3 (07:56→17:37)
[2017-02-12] MEDS: FUROSEMIDE 20 MG TAB PO SCH (07:56)
[2017-02-12] MEDS: HYDROCORTISONE 2.5% CREAM 30 GM TOPICAL SCH (07:56)
[2017-02-12] MEDS: PANTOPRAZOLE SOD 40 MG DELAYED RELEASE TAB PO SCH (07:56)
[2017-02-12] MEDS: POTASSIUM CHLORIDE 10 MEQ CONTROLLED RELEASE TAB PO SCH ×2 (07:56→20:17)
[2017-02-12] MEDS: DULoxetine HCl DR 60 MG CAP PO SCH (07:56)
[2017-02-12] MEDS: DOXAZOSIN MESYLATE 4 MG TAB PO SCH (07:56)
[2017-02-12] MEDS: DOCUSATE SODIUM 100 MG CAP PO SCH ×2 (07:56→20:17)
[2017-02-12] MEDS: ISONIAZID 300 MG TAB PO SCH (07:56)
[2017-02-12] MEDS: NIFEdipine 30 MG SUSTAINED RELEASE TAB PO SCH (07:56)
[2017-02-12] MEDS: SODIUM CHLORIDE 0.9% FLUSH 10 ML FLUSH IV FLUSH SCH ×2 (07:57→20:17)
[2017-02-12] MEDS: FINASTERIDE 5 MG TAB PO SCH (07:57)
[2017-02-12 11:55] VITALS: BP 133/79; PULSE 88; RESP 18; TEMP 97.8; O2SAT 92
--- NOTE | 2017-02-12 13:52 | HHI.NSPN ---
History Chief Complaint: Incisional pain. Interval History 02/10: Pt awake and alert. Complains of incisional back pain. No radiculopathy or paresthesias in LEs. He was up with PT today. Voiding well. 02/11: Pt awake and alert. Complains of pain radiating down the lateral aspect of the right leg. States he wants to continue with HAND ROUNDER today. Voiding well. No paresthesias in LEs. 02/12: Pt awake and alert. Sitting up in chair. Complains of intermittent right lateral leg pain with ambulation. No paresthesias in LEs. Tolerating diet well. Review of Systems General: Negative for: fever, chills, insomnia Respiratory: Negative for: shortness of breath, cough, sputum Cardiovascular: Negative for: chest pain Gastrointestinal: Negative for: nausea, vomitting, diarrhea, constipation Exam Results Vital Signs Date Time Temp Pulse Resp B/P (MAP) Pulse Ox O2 Delivery O2 Flow Rate FiO2 02/12/17 11:55 97.8 88 18 133/79 (97) 92 02/12/17 07:34 Room Air 02/11/17 14:21 21 02/10/17 18:05 2.50 Intake and Output 02/12/17 02/12/17 02/13/17 08:00 16:00 00:00 Intake Total 240 ml Output Total 400 ml Balance -160 ml Physical Examination Resp: CTA bilaterally Heart: NSR no murmurs Abd: Soft positive bs Skin: No cyanosis or erythema. Muscle: Moves LEs with good strength Neuro: Pt awake and alert. Follows commands well. Speech clear and appropriate. RLE pain exacerbates with right knee extension. Lab, Micro, Other Results Last Impressions Lumbar Spine X-Ray 02/09/17 0000 Signed Impressions: Service Date/Time: January 08:50 - CONCLUSION: Status post fusion at the L4-5 level. Zev Mccloud MD Medical Decision Making Impression and Plan A: 51 y/o M s/p L4/L5 decompression and interbody fusion with cage and pedicle screw fixation. P: Continue to monitor Continue with PT. Anticipate discharge home Monday with home PT and HHC Amarjit Pabon Feb 12, 2017 13:52
[2017-02-12 15:40] VITALS: BP 132/75; PULSE 95; RESP 18; TEMP 97.7; O2SAT 94
--- NOTE | 2017-02-12 16:02 | HHI.PR ---
Subjective Remarks Continued improvement in patient's ability to ambulate. 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 He is doing well with this thus far. Pain is present but has control. Objective Vital Signs Date Time Temp Pulse Resp B/P (MAP) Pulse Ox O2 Delivery O2 Flow Rate FiO2 02/12/17 11:55 97.8 88 18 133/79 (97) 92 02/12/17 07:45 99.0 79 18 131/75 (93) 93 02/12/17 07:34 Room Air 02/12/17 04:13 97.5 96 19 130/71 (90) 95 02/12/17 00:13 98.1 88 19 120/66 (84) 95 02/11/17 20:50 97.0 102 19 109/68 (82) 96 I/O 02/11/17 02/11/17 02/11/17 02/12/17 02/12/17 02/12/17 07:00 15:00 23:00 07:00 15:00 23:00 Intake Total 1739 ml 1130 ml 360 ml 240 ml Output Total 400 ml Balance 1739 ml 1130 ml 360 ml -160 ml Intake Oral 480 ml 480 ml 360 ml 240 ml IV Total 1259 ml 650 ml Output Urine Total 400 ml # Voids 3 4 1 1 # Bowel Movements 0 0 0 Result Diagram: 02/11/17 0751 02/11/17 0751 Objective Remarks GENERAL: NAD, A&Ox3 HEAD: Normocephalic. NECK: Supple, trachea midline. No lymphadenopathy. EYES: No scleral icterus. No injection or drainage. CARDIOVASCULAR: Regular rate and rhythm without murmurs, gallops, or rubs. RESPIRATORY: Breath sounds equal bilaterally. No accessory muscle use. GASTROINTESTINAL: Abdomen soft, non-tender, nondistended. MUSCULOSKELETAL: No cyanosis, or edema. SKIN: Warm and dry. NEURO: No focal neurological deficitis. A/P Problem List: (1) Spondylolisthesis of lumbar region ICD Code: M43.16 - Spondylolisthesis, lumbar region Status: Acute (2) Lumbar foraminal stenosis ICD Code: M99.83 - Other biomechanical lesions of lumbar region Status: Acute (3) Lumbar degenerative disc disease ICD Code: M51.36 - Other intervertebral disc degeneration, lumbar region Status: Acute (4) Facet arthropathy, lumbar ICD Code: M12.88 - Other specific arthropathies, not elsewhere classified, other specified site Status: Acute (5) Postlaminectomy syndrome, lumbar ICD Code: M96.1 - Postlaminectomy syndrome, not elsewhere classified Status: Acute (6) Low back pain ICD Code: M54.5 - Low back pain Status: Acute Assessment and Plan Assessment and plan 51-year-old male status post lumbar spine fusion surgery. Continue PT. Plan for discharge in 1-2 days. Depending on patient's functional status he may need to change discharge to a halfway facility with rehabilitation. Follow renal function. Labs ordered. 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
[2017-02-12 20:47] VITALS: BP 123/59; PULSE 88; RESP 18; TEMP 99.8; O2SAT 96
[2017-02-13 00:13] VITALS: BP 123/73; PULSE 80; RESP 18; TEMP 98; O2SAT 95
[2017-02-13 04:13] VITALS: BP 118/72; PULSE 83; RESP 18; TEMP 98.5; O2SAT 95
[2017-02-13] MEDS: NS + KCL 20 MEQ INJ 1,000 ML IV SCH (05:17)
[2017-02-13 05:22] LABS: HEMATOCRIT 30.1 % (39.0-51.0); MEAN CELL VOLUME 85.1 FL (80.0-100.0); MEAN CORPUSCULAR HEMOGLOBIN 29.1 PG (27.0-34.0); MEAN CORPUSCULAR HGB CONC 34.2 % (32.0-36.0); PLATELET COUNT 249 TH/MM3 (150-450); RED BLOOD COUNT 3.54 MIL/MM3 (4.50-5.90); RED CELL DISTRIBUTION WIDTH 13.6 % (11.6-17.2); REVIEW FLAG FINAL; WHITE BLOOD COUNT 11.5 TH/MM3 (4.0-11.0)
[2017-02-13 05:35] LABS: BICARBONATE 31.7 MEQ/L (21.0-32.0); POTASSIUM 3.8 MEQ/L (3.5-5.1)
[2017-02-13] MEDS: PCA - TOTAL MG MORPHINE DELIVERED PER SHIFT SCH ×3 (06:00→22:00)
[2017-02-13] MEDS: NIFEdipine 30 MG SUSTAINED RELEASE TAB PO SCH (07:48)
[2017-02-13] MEDS: ARIPiprazole 30 MG TAB PO SCH (07:49)
[2017-02-13] MEDS: DOCUSATE SODIUM 100 MG CAP PO SCH ×2 (07:49→21:52)
[2017-02-13] MEDS: POTASSIUM CHLORIDE 10 MEQ CONTROLLED RELEASE TAB PO SCH ×2 (07:49→21:53)
[2017-02-13] MEDS: FUROSEMIDE 20 MG TAB PO SCH (07:50)
[2017-02-13] MEDS: PYRIDOXINE HCL 50 MG TAB PO SCH (07:50)
[2017-02-13] MEDS: hydrOXYzine HCL 25 MG TAB PO SCH ×3 (07:50→17:20)
[2017-02-13] MEDS: ISONIAZID 300 MG TAB PO SCH (07:51)
[2017-02-13] MEDS: DOXAZOSIN MESYLATE 4 MG TAB PO SCH (07:51)
[2017-02-13] MEDS: DULoxetine HCl DR 60 MG CAP PO SCH (07:51)
[2017-02-13] MEDS: CYCLOBENZAPRINE HCL 10 MG TAB PO SCH ×3 (07:52→17:19)
[2017-02-13] MEDS: GABAPENTIN 300 MG CAP PO SCH ×3 (07:52→17:20)
[2017-02-13] MEDS: FINASTERIDE 5 MG TAB PO SCH (07:52)
[2017-02-13] MEDS: PANTOPRAZOLE SOD 40 MG DELAYED RELEASE TAB PO SCH (07:53)
[2017-02-13] MEDS: LACTULOSE SYRUP 20 GM/30 ML CUP PO SCH (07:54)
[2017-02-13] MEDS: SODIUM CHLORIDE 0.9% FLUSH 10 ML FLUSH IV FLUSH SCH ×2 (07:54→21:53)
[2017-02-13 08:00] VITALS: BP 114/69; PULSE 90; RESP 16; TEMP 98.2; O2SAT 95
[2017-02-13] MEDS: HYDROCORTISONE 2.5% CREAM 30 GM TOPICAL SCH (09:00)
--- NOTE | 2017-02-13 10:03 | HHI.PR ---
Subjective Remarks Continuing to improve mobility postop. Patient is still needing a walker. His renal function is continuing to improve through time and no longer needs to be monitored. IV hydration discontinued. Patient is medically stable for discharge. Some social barriers exist including transportation issues and is somewhat unsafe home environment for walker use secondary to his roommate being a hoarder. Objective Vital Signs Date Time Temp Pulse Resp B/P (MAP) Pulse Ox O2 Delivery O2 Flow Rate FiO2 02/13/17 09:00 16 02/13/17 04:13 98.5 83 18 118/72 (87) 95 02/13/17 00:13 98.0 80 18 123/73 (90) 95 02/12/17 20:47 99.8 88 18 123/59 (80) 96 02/12/17 15:40 97.7 95 18 132/75 (94) 94 02/12/17 11:55 97.8 88 18 133/79 (97) 92 I/O 02/12/17 02/12/17 02/12/17 02/13/17 02/13/17 02/13/17 07:00 15:00 23:00 07:00 15:00 23:00 Intake Total 240 ml 720 ml 360 ml 240 ml Output Total 400 ml Balance -160 ml 720 ml 360 ml 240 ml Intake Oral 240 ml 720 ml 360 ml 240 ml Output Urine Total 400 ml # Voids 1 3 4 3 # Bowel Movements 0 1 0 0 Result Diagram: 02/13/1741902/13/17419 Objective Remarks GENERAL: NAD, A&Ox3 HEAD: Normocephalic. NECK: Supple, trachea midline. No lymphadenopathy. EYES: No scleral icterus. No injection or drainage. CARDIOVASCULAR: Regular rate and rhythm without murmurs, gallops, or rubs. RESPIRATORY: Breath sounds equal bilaterally. No accessory muscle use. GASTROINTESTINAL: Abdomen soft, non-tender, nondistended. MUSCULOSKELETAL: No cyanosis, or edema. SKIN: Warm and dry. NEURO: No focal neurological deficitis. A/P Problem List: (1) Spondylolisthesis of lumbar region ICD Code: M43.16 - Spondylolisthesis, lumbar region Status: Acute (2) Lumbar foraminal stenosis ICD Code: M99.83 - Other biomechanical lesions of lumbar region Status: Acute (3) Lumbar degenerative disc disease ICD Code: M51.36 - Other intervertebral disc degeneration, lumbar region Status: Acute (4) Facet arthropathy, lumbar ICD Code: M12.88 - Other specific arthropathies, not elsewhere classified, other specified site Status: Acute (5) Postlaminectomy syndrome, lumbar ICD Code: M96.1 - Postlaminectomy syndrome, not elsewhere classified Status: Acute (6) Low back pain ICD Code: M54.5 - Low back pain Status: Acute Assessment and Plan Assessment and plan 51-year-old male status post lumbar spine fusion surgery. Continue PT. medically stable for discharge no further need for IV hydration and monitoring of renal function. Postop lumbar spine fusion surgery Neurosurgery following Continue pain treatments Pain not yet controlled Hydrocodone change to oxycodone TECHNICAL SUPPORT AGENT morphine pump continue Acute kidney injury Resolved. Asthma Sleep apnea No exacerbation Patient reports he cannot use a BiPAP or CPAP Hypertension Continue baseline treatments Follow blood pressure Rheumatoid arthritis As needed pain treatments NSAIDs may be considered to augment pain, but not immediately postop Depression Anxiety No change to baseline treatments Tuberculosis as a child Follow clinically Discharge planning Medically stable for discharge Joey Tello MD Feb 13, 2017 10:02
--- NOTE | 2017-02-13 10:10 | HHI.NSPN ---
History Chief Complaint: Incisional pain. Interval History 02/10: Pt awake and alert. Complains of incisional back pain. No radiculopathy or paresthesias in LEs. He was up with PT today. Voiding well. 02/11: Pt awake and alert. Complains of pain radiating down the lateral aspect of the right leg. States he wants to continue with OTOLARYNGOLOGY PHYSICIAN today. Voiding well. No paresthesias in LEs. 02/12: Pt awake and alert. Sitting up in chair. Complains of intermittent right lateral leg pain with ambulation. No paresthesias in LEs. Tolerating diet well. 02/13: Pt awake and alert. Sitting up in bed. Complains of intermittent right lateral leg pain with ambulation. Today paresthesias on the bottom of his left foot, no radiation into left leg. Review of Systems General: Negative for: fever, chills, insomnia Respiratory: Negative for: shortness of breath, cough, sputum Cardiovascular: Negative for: chest pain Gastrointestinal: Negative for: nausea, vomitting, diarrhea, constipation Exam Results Vital Signs Date Time Temp Pulse Resp B/P (MAP) Pulse Ox O2 Delivery O2 Flow Rate FiO2 02/13/17 09:00 16 02/13/17 04:13 98.5 83 118/72 (87) 95 02/12/17 07:34 Room Air 02/11/17 14:21 21 02/10/17 18:05 2.50 Intake and Output 02/13/17 02/13/17 02/14/17 08:00 16:00 00:00 Intake Total 240 ml Balance 240 ml Physical Examination Resp: CTA bilaterally Heart: NSR no murmurs Abd: Soft positive bs Skin: No cyanosis or erythema. New bandaged placed this morning by RN. Muscle: Moves LEs with good strength Neuro: Pt awake and alert. Follows commands well. Speech clear and appropriate. Sensation intact in LEs. Lab, Micro, Other Results Last Impressions Lumbar Spine X-Ray 02/09/17 0000 Signed Impressions: Service Date/Time: January 08:50 - CONCLUSION: Status post fusion at the L4-5 level. Zev Mccloud MD Laboratory Tests Test 02/13/17 04:20 White Blood Count 11.5 TH/MM3 Red Blood Count 3.54 MIL/MM3 Hemoglobin 10.3 GM/DL Hematocrit 30.1 % Mean Corpuscular Volume 85.1 FL Mean Corpuscular Hemoglobin 29.1 PG Mean Corpuscular Hemoglobin Concent 34.2 % Red Cell Distribution Width 13.6 % Platelet Count 249 TH/MM3 Mean Platelet Volume 9.3 FL Blood Urea Nitrogen 22 MG/DL Creatinine 1.43 MG/DL Random Glucose 93 MG/DL Calcium Level 8.9 MG/DL Sodium Level 136 MEQ/L Potassium Level 3.8 MEQ/L Chloride Level 99 MEQ/L Carbon Dioxide Level 31.7 MEQ/L Anion Gap 5 MEQ/L Estimat Glomerular Filtration Rate 52 ML/MIN Medical Decision Making Impression and Plan A: 51 y/o M s/p L4/L5 decompression and interbody fusion with cage and pedicle screw fixation. P: Continue to monitor Continue with PT. Anticipate discharge home tomorrow with home PT and HHC. Discussed with Case management and arrangements being made. Amarjit Pabon Feb 13, 2017 10:10 am
--- NOTE | 2017-02-13 10:13 | HHI.FF ---
Face to Face Verification Diagnosis: (1) Low back pain (2) Postlaminectomy syndrome, lumbar (3) Facet arthropathy, lumbar (4) Lumbar degenerative disc disease (5) Lumbar foraminal stenosis (6) Spondylolisthesis of lumbar region Physical Therapy Order: Evaluate and Treat, Improve ambulation, Strength and gait training Home Health Nursing Order: Wound care and dressing changes Nursing assessment with vital signs I have seen patient Jovany Oconnell on 02/13/17. My clinical findings support the need for the requested home health care services because: Deconditioned w/ increased weakness I certify that my clinical findings support that this patient is homebound because: Unsteady gait/balance Unable to use public transportation Amarjit Pabon Feb 13, 2017 10:13
[2017-02-13 12:00] VITALS: BP 133/73; PULSE 84; RESP 16; TEMP 97; O2SAT 94
[2017-02-13 16:00] VITALS: BP 126/77; PULSE 86; RESP 16; TEMP 98.9; O2SAT 95
[2017-02-13 20:50] VITALS: BP 124/78; PULSE 98; RESP 18; TEMP 97.8; O2SAT 96
[2017-02-13] MEDS ORDERED: AEROBID PO (21:59)
[2017-02-13] MEDS ORDERED: VENTAER INH (21:59)
[2017-02-14 00:13] VITALS: BP 117/77; PULSE 85; RESP 18; TEMP 98; O2SAT 96
[2017-02-14 04:13] VITALS: BP 114/71; PULSE 81; RESP 18; TEMP 98.3; O2SAT 95
[2017-02-14 08:00] VITALS: BP 120/74; PULSE 80; RESP 16; TEMP 97.3; O2SAT 95
[2017-02-14] MEDS: DOXAZOSIN MESYLATE 4 MG TAB PO SCH (08:41)
[2017-02-14] MEDS: DULoxetine HCl DR 60 MG CAP PO SCH (08:41)
[2017-02-14] MEDS: PANTOPRAZOLE SOD 40 MG DELAYED RELEASE TAB PO SCH (08:41)
[2017-02-14] MEDS: POTASSIUM CHLORIDE 10 MEQ CONTROLLED RELEASE TAB PO SCH (08:41)
[2017-02-14] MEDS: NIFEdipine 30 MG SUSTAINED RELEASE TAB PO SCH (08:41)
[2017-02-14] MEDS: FUROSEMIDE 20 MG TAB PO SCH (08:42)
[2017-02-14] MEDS: FINASTERIDE 5 MG TAB PO SCH (08:42)
[2017-02-14] MEDS: GABAPENTIN 300 MG CAP PO SCH ×2 (08:42→14:07)
[2017-02-14] MEDS: hydrOXYzine HCL 25 MG TAB PO SCH ×2 (08:42→14:06)
[2017-02-14] MEDS: PYRIDOXINE HCL 50 MG TAB PO SCH (08:43)
[2017-02-14] MEDS: ARIPiprazole 30 MG TAB PO SCH (08:43)
[2017-02-14] MEDS: ISONIAZID 300 MG TAB PO SCH (08:43)
[2017-02-14] MEDS: DOCUSATE SODIUM 100 MG CAP PO SCH (08:43)
[2017-02-14] MEDS: LACTULOSE SYRUP 20 GM/30 ML CUP PO SCH (08:43)
[2017-02-14] MEDS: CYCLOBENZAPRINE HCL 10 MG TAB PO SCH ×2 (08:43→14:09)
[2017-02-14] MEDS: HYDROCORTISONE 2.5% CREAM 30 GM TOPICAL SCH (08:44)
[2017-02-14] MEDS: SODIUM CHLORIDE 0.9% FLUSH 10 ML FLUSH IV FLUSH SCH (08:44)
[2017-02-14] MEDS ORDERED: MORPHINE SULFATE 4 MG/ML INJ IV PUSH PRN (09:00)
[2017-02-14] MEDS ORDERED: OXYC-395 PO ×2 (10:04→14:51)
--- NOTE | 2017-02-14 10:15 | HHI.PR ---
Subjective Remarks Doing well postop. No new complaints today. Medically clear for discharge. Objective Vital Signs Date Time Temp Pulse Resp B/P (MAP) Pulse Ox O2 Delivery O2 Flow Rate FiO2 02/14/17 10:05 16 02/14/17 08:00 97.3 80 16 120/74 (89) 95 02/14/17 04:13 98.3 81 18 114/71 (85) 95 02/14/17 00:13 98.0 85 18 117/77 (90) 96 02/13/17 20:50 97.8 98 18 124/78 (93) 96 02/13/17 19:00 Room Air 02/13/17 16:00 98.9 86 16 126/77 (93) 95 02/13/17 14:00 18 02/13/17 12:00 97.0 84 16 133/73 (93) 94 I/O 02/13/17 02/13/17 02/13/17 02/14/17 02/14/17 02/14/17 07:00 15:00 23:00 07:00 15:00 23:00 Intake Total 240 ml 360 ml 360 ml Balance 240 ml 360 ml 360 ml Intake Oral 240 ml 360 ml 360 ml # Voids 3 5 3 # Bowel Movements 0 0 0 Result Diagram: 02/13/1741902/13/17 042 Objective Remarks GENERAL: NAD, A&Ox3 HEAD: Normocephalic. NECK: Supple, trachea midline. No lymphadenopathy. EYES: No scleral icterus. No injection or drainage. CARDIOVASCULAR: Regular rate and rhythm without murmurs, gallops, or rubs. RESPIRATORY: Breath sounds equal bilaterally. No accessory muscle use. GASTROINTESTINAL: Abdomen soft, non-tender, nondistended. MUSCULOSKELETAL: No cyanosis, or edema. SKIN: Warm and dry. NEURO: No focal neurological deficitis. A/P Problem List: (1) Spondylolisthesis of lumbar region ICD Code: M43.16 - Spondylolisthesis, lumbar region Status: Acute (2) Lumbar foraminal stenosis ICD Code: M99.83 - Other biomechanical lesions of lumbar region Status: Acute (3) Lumbar degenerative disc disease ICD Code: M51.36 - Other intervertebral disc degeneration, lumbar region Status: Acute (4) Facet arthropathy, lumbar ICD Code: M12.88 - Other specific arthropathies, not elsewhere classified, other specified site Status: Acute (5) Postlaminectomy syndrome, lumbar ICD Code: M96.1 - Postlaminectomy syndrome, not elsewhere classified Status: Acute (6) Low back pain ICD Code: M54.5 - Low back pain Status: Acute Assessment and Plan Assessment and plan 51-year-old male status post lumbar spine fusion surgery. Doing well postop. Continue PT. medically stable for discharge. 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 Asthma Sleep apnea No exacerbation Patient reports he cannot use a BiPAP or CPAP Hypertension Continue baseline treatments Follow blood pressure Rheumatoid arthritis As needed pain treatments NSAIDs may be considered to augment pain, but not immediately postop Depression Anxiety No change to baseline treatments Tuberculosis as a child Follow clinically Discharge planning Medically stable for discharge Joey Tello MD Feb 14, 2017 10:15
[2017-02-14 11:45] VITALS: BP 122/71; PULSE 83; RESP 16; TEMP 97.4; O2SAT 94
[2017-02-14 16:30] VITALS: BP 109/69; PULSE 96; RESP 16; TEMP 97.1; O2SAT 97
[2017-02-14 18:26] VITALS: RESP 18
[2017-02-16] MEDS ORDERED: CYCL1TAB29 PO (13:19)
[2017-02-16] MEDS ORDERED: ZANA4CAP PO (13:49)
[2017-03-01] MEDS ORDERED: OXYC-395 PO (16:55)
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
[2017-03-20] MEDS ORDERED: OXYC-395 PO (12:34)
[2017-03-23] MEDS ORDERED: MUPI2OIN TOPICAL (15:18)
[2017-03-23] MEDS ORDERED: OXYC-395 PO (15:37)
[2017-04-07] MEDS ORDERED: HYDR-3366 PO (12:12)
== END 2017-02-14 19:45 | disposition home health service (06) | DRG 460 ==
LOC: EDUNIT# 12-07 08:30 → HSDI 02-09 05:47 → N06B 02-09 14:50
PROVIDERS: ADMIT Neurological Surgery; ATTEND Neurological Surgery
PROC: 0ST20ZZ Resection of Lumbar Vertebral Disc, Open Approach (ICD-10-PCS; 2017-02-09)
PROC: 0SG00AJ Fusion of Lumbar Vertebral Joint with Interbody Fusion Device, Posterior Approach, Anterior Column, Open Approach (ICD-10-PCS; principal; 2017-02-09 08:34)
DX: M51.16 Intervertebral disc disorders with radiculopathy, lumbar region (principal); N17.9 Acute kidney failure, unspecified; I10 Essential (primary) hypertension; G47.30 Sleep apnea, unspecified; G89.29 Other chronic pain; M48.06 Spinal stenosis, lumbar region; M96.1 Postlaminectomy syndrome, not elsewhere classified; M06.9 Rheumatoid arthritis, unspecified; F32.9 Major depressive disorder, single episode, unspecified; F41.9 Anxiety disorder, unspecified; Z86.11 Personal history of tuberculosis; J45.909 Unspecified asthma, uncomplicated; Z87.891 Personal history of nicotine dependence; Y83.8 Other surgical procedures as the cause of abnormal reaction of the patient, or of later complication, without mention of misadventure at the time of the procedure; Y79.3 Surgical instruments, materials and orthopedic devices (including sutures) associated with adverse incidents; Y92.009 Unspecified place in unspecified non-institutional (private) residence as the place of occurrence of the external cause; M46.96 Unspecified inflammatory spondylopathy, lumbar region; M99.83 Other biomechanical lesions of lumbar region
CPT/HCPCS: 72100; 76000; 80048; 83735; 85025; 85027; 86850; 86900; 86901; 94150; C1713; J0131; J0690; J1100; J2250; J2270; J2370; J2405; J2710; J3010; J3370; J3480; J7120; L0627

== ENCOUNTER → 2016-12-01 | Outpatient (CLI) | payer OTHER ==
[~2016-12-01] MED LIST: ARIP1TAB14 PO; BACTOIN EACH NARE; CYCL1TAB29 PO; DOXA1TAB43 PO; DULO1CAP3 PO; FURO20TA PO; GABA600T PO; HYDR-3133 PO; HYDR-3366 PO; HYDR-4204 TOPICAL; ISON300T3 PO; NAPR500T PO; NIFE30TA61 PO; POTA10TA2 PO; PROS5TAB PO
== END ==
LOC: CPRE 11:39
PROVIDERS: ATTEND Neurological Surgery
DX: Z01.812 Encounter for preprocedural laboratory examination (principal); M43.16 Spondylolisthesis, lumbar region; M51.36 Other intervertebral disc degeneration, lumbar region

== ENCOUNTER → 2017-02-07 | Outpatient (CLI) | payer OTHER ==
[~2017-02-07] MED LIST changes: +AEROBID PO; +ARIP1TAB14 PO; +ARIP1TAB15 PO; +HYDR-3366 PO; +HYDR-3533 PO; +MUPI2OIN TOPICAL; +OXYC-395 PO; +PYRI100T PO; +VENTAER INH; +WALKER WHEELS/F1 MIS; +ZANA4CAP PO
== END ==
LOC: PREF 12:39
PROVIDERS: ATTEND Neurological Surgery
DX: Z01.818 Encounter for other preprocedural examination (principal); M51.36 Other intervertebral disc degeneration, lumbar region; M99.83 Other biomechanical lesions of lumbar region; M96.1 Postlaminectomy syndrome, not elsewhere classified; M43.16 Spondylolisthesis, lumbar region